=== PATIENT | male | born 1935 | race Caucasian/White ===

== ENCOUNTER 2025-05-05 12:38 | Emergency (ER) | payer MEDICARE ==
[~2025-05-05] VITALS: Ht 172.7 cm; Wt 73.5 kg
[2025-05-05 12:45] VITALS: O2SAT 99
== END 2025-05-05 14:02 | disposition home or self-care (01) ==
LOC: ER 12:38
DX: M79.671 Pain in right foot (principal); L98.8 Other specified disorders of the skin and subcutaneous tissue; I13.0 Hypertensive heart and chronic kidney disease with heart failure and stage 1 through stage 4 chronic kidney disease, or unspecified chronic kidney disease; I50.9 Heart failure, unspecified; E11.22 Type 2 diabetes mellitus with diabetic chronic kidney disease; N18.9 Chronic kidney disease, unspecified; F03.90 Unspecified dementia, unspecified severity, without behavioral disturbance, psychotic disturbance, mood disturbance, and anxiety; Z95.5 Presence of coronary angioplasty implant and graft
CPT/HCPCS: A4606; A4663